=== PATIENT | male | born 1990 | race Caucasian/White ===

== ENCOUNTER 2016-07-04 14:25 | Emergency (ER) | payer SELFPAY ==
[~2016-07-04] VITALS: Ht 170.2 cm; Wt 81.6 kg
[2016-07-04 14:34] VITALS: BP_SYST 126
[2016-07-04 15:01] VITALS: BP_SYST 122
== END 2016-07-04 15:01 ==
LOC: SED 14:25
DX: Z00.01 Encounter for general adult medical examination with abnormal findings (principal); R07.89 Other chest pain; J45.909 Unspecified asthma, uncomplicated
CPT/HCPCS: 99283